=== PATIENT | female | born 1955 | race Caucasian/White ===

== ENCOUNTER 2024-10-11 19:34 | Inpatient (IN) | payer MEDICARE ==
[~2024-10-11] VITALS: Ht 165.1 cm; Wt 101.2 kg
[2024-10-11 20:00] VITALS: BP 131/80; TEMP 97.7; O2SAT 95
[2024-10-11] MEDS ORDERED: Z GUARD REMEDY 4 OZ OINT TP PRN (21:00)
[2024-10-11] MEDS ORDERED: ENOXAPARIN SODIUM 40 MG/0.4 ML DISP.SYRIN SQ SCH (21:00)
[2024-10-11] MEDS ORDERED: MAG HYDROX/AL HYDROX/SIMETH 30 ML UDC PO PRN (21:00)
[2024-10-11] MEDS ORDERED: MAGNESIUM HYDROXIDE 30 ML UDC PO PRN (21:00)
[2024-10-11] MEDS ORDERED: ONDANSETRON HCL/PF 4 MG/2 ML VIAL IVP PRN (21:00)
[2024-10-11] MEDS ORDERED: ZOLPIDEM TARTRATE 5 MG TABLET PO PRN (21:00)
[2024-10-11] MEDS: AMIODARONE 150 MG in IV D5W 100 ML IV ONE (22:10)
[2024-10-11] MEDS: AMIODARONE 450 MG in IV D5W 241 ML IV PRN (23:16)
[2024-10-12] VITALS: BP 106/84; TEMP 97.9; O2SAT 96
[2024-10-12] MEDS ORDERED: ALBUTEROL FS 2.5 MG/3 ML VIAL.NEB NEB PRN (01:00)
[2024-10-12] MEDS ORDERED: IPRATROPIUM NEB FS 0.5 MG/2.5 ML AMPUL.NEB NEB PRN (01:00)
[2024-10-12] MEDS: ASPIRIN 325 MG TABLET PO SCH (01:57)
[2024-10-12] MEDS: CEFTRIAXONE 1 G in IV D5W 50 ML IV SCH (02:26)
[2024-10-12] MEDS ORDERED: AZITHROMYCIN 500 MG VIAL ONE (02:36)
[2024-10-12] MEDS: AZITHROMYCIN 500 MG in IV D5W 250 ML IV SCH (03:11)
[2024-10-12 04:00] VITALS: BP 106/69; TEMP 98.4; O2SAT 95
[2024-10-12 07:13] LABS: BASOPHILS % (AUTO) 0.3 % (0.0-2.0); EOSINOPHILS % (AUTO) 0.4 % (0.0-6.0); HEMATOCRIT 44 % (33-45); HEMOGLOBIN 14.4 g/dL (11.5-14.8); LYMPHOCYTES # (AUTO) 1.6 K/uL (0.8-4.8); MEAN CORPUSCULAR HEMOGLOBIN 29 PG (26.0-33.0); MEAN CORPUSCULAR HGB CONC 33 g/dl (31.0-36.0); MEAN CORPUSCULAR VOLUME 88 fL (82-100); MONOCYTES # (AUTO) 0.7 K/uL (0.1-1.30); NEUTROPHILS # (AUTO) 5.3 K/uL (1.8-8.9); NEUTROPHILS % (AUTO) 69.3 % (43.0-81.0); PLATELET COUNT (AUTO) 259 K/uL (150-450); RED BLOOD CELL COUNT(AUTO) 5.02 MIL/uL (4.0-5.2); WHITE BLOOD COUNT (AUTO) 7.6 K/uL (4.3-11.0)
[2024-10-12 08:00] VITALS: BP 112/69; TEMP 98.2; O2SAT 95
[2024-10-12] MEDS: PANTOPRAZOLE 40 MG TABLET.DR PO SCH (08:24)
[2024-10-12 12:00] VITALS: BP 118/65; TEMP 98.7; O2SAT 95
[2024-10-12] MEDS: APIXABAN 5 MG TABLET PO SCH (14:11)
[2024-10-12 16:00] VITALS: BP_SYST 118; BP_SYST 127; BP_DIAS 65; BP_DIAS 68; TEMP 98.2; TEMP 98.4; O2SAT 95
[2024-10-12] MEDS: FUROSEMIDE 40 MG/4 ML VIAL IV SCH (16:22)
[2024-10-12] MEDS: DIGOXIN INJ 0.5 MG/2 ML AMPUL IV ONE ×2 (16:22→22:59)
[2024-10-12 16:33] LABS: CALCIUM, SERUM 9.2 mg/dL (8.5-10.1); CREATININE 1.3 mg/dL (0.6-1.3); MAGNESIUM 2.4 mg/dL (1.8-2.4); POTASSIUM 4.4 mmol/L (3.5-5.1)
[2024-10-12 16:59] LABS: THYROID STIMULATING HORMONE 1.96 uIU/mL (0.358-3.74)
[2024-10-12] MEDS ORDERED: METOPROLOL TARTRATE 25 MG TABLET PO SCH (18:00)
[2024-10-12 20:00] VITALS: BP 136/95; TEMP 98.4; O2SAT 97
[2024-10-12] MEDS: CEFTRIAXONE 2 G in IV D5W 100 ML IV SCH (22:59)
[2024-10-13] VITALS (25 sets, daily range): BP systolic 104–157; BP diastolic 54–124; TEMP 97.7–98.9; O2SAT 88–98
[2024-10-13] MEDS: DIGOXIN INJ 0.5 MG/2 ML AMPUL IV ONE (04:49)
[2024-10-13] MEDS ORDERED: ASPIRIN EC 81 MG TABLET.DR PO SCH (09:00)
[2024-10-13] MEDS ORDERED: IOHEXOL-350 100 ML VIAL IV ONE (15:45)
[2024-10-13] MEDS ORDERED: IV NS 0.9% 250 ML IV ONE (15:45)
[2024-10-13 16:29] LABS: BASOPHILS % (AUTO) 0.4 % (0.0-2.0); EOSINOPHILS # (AUTO) 0.1 K/uL (0.0-0.7); EOSINOPHILS % (AUTO) 0.8 % (0.0-6.0); HEMATOCRIT 44 % (33-45); HEMOGLOBIN 14.4 g/dL (11.5-14.8); LYMPHOCYTES # (AUTO) 1.2 K/uL (0.8-4.8); LYMPHOCYTES % (AUTO) 16.3 % (20.0-44.0); MEAN CORPUSCULAR HEMOGLOBIN 29 PG (26.0-33.0); MEAN CORPUSCULAR HGB CONC 32 g/dl (31.0-36.0); MEAN CORPUSCULAR VOLUME 89 fL (82-100); MONOCYTES # (AUTO) 0.7 K/uL (0.1-1.30); MONOCYTES % (AUTO) 10.2 % (2.0-12.0); NEUTROPHILS # (AUTO) 5.2 K/uL (1.8-8.9); NEUTROPHILS % (AUTO) 72.3 % (43.0-81.0); PLATELET COUNT (AUTO) 216 K/uL (150-450); RED CELL DISTRIBUTION WIDTH 16.3 % (11.5-15.0); WHITE BLOOD COUNT (AUTO) 7.2 K/uL (4.3-11.0)
[2024-10-13 16:34] LABS: INR 1.3 (0.91-1.10); PARTIAL THROMBOPLASTIN TIME 25.9 SEC (24.3-34.3); PROTHROMBIN TIME 13.5 SECS (9.2-11.1)
[2024-10-13 16:35] LABS: CALCIUM, SERUM 8.5 mg/dL (8.5-10.1); CREATININE 1.3 mg/dL (0.6-1.3); POTASSIUM 3.9 mmol/L (3.5-5.1)
[2024-10-13] MEDS: ASPIRIN 81 MG TAB.CHEW PO SCH (17:26)
[2024-10-13] MEDS: ATORVASTATIN 40 MG TABLET PO SCH (22:57)
[2024-10-14] VITALS (36 sets, daily range): BP systolic 97–173; BP diastolic 57–157; TEMP 98–99.3; O2SAT 88–98
[2024-10-14 05:09] LABS: BASOPHILS % (AUTO) 0.6 % (0.0-2.0); EOSINOPHILS % (AUTO) 0.8 % (0.0-6.0); HEMATOCRIT 45 % (33-45); HEMOGLOBIN 14.9 g/dL (11.5-14.8); LYMPHOCYTES # (AUTO) 1.1 K/uL (0.8-4.8); MEAN CORPUSCULAR HEMOGLOBIN 29 PG (26.0-33.0); MEAN CORPUSCULAR HGB CONC 33 g/dl (31.0-36.0); MEAN CORPUSCULAR VOLUME 88 fL (82-100); MONOCYTES # (AUTO) 0.6 K/uL (0.1-1.30); NEUTROPHILS # (AUTO) 4.1 K/uL (1.8-8.9); NEUTROPHILS % (AUTO) 69.6 % (43.0-81.0); PLATELET COUNT (AUTO) 216 K/uL (150-450); RED BLOOD CELL COUNT(AUTO) 5.14 MIL/uL (4.0-5.2); RED CELL DISTRIBUTION WIDTH 16.2 % (11.5-15.0); WHITE BLOOD COUNT (AUTO) 5.8 K/uL (4.3-11.0)
[2024-10-14 05:22] LABS: ALBUMIN 3.1 g/dL (3.4-5.0); MAGNESIUM 2.2 mg/dL (1.8-2.4); PHOSPHORUS 2.7 mg/dL (2.5-4.9); POTASSIUM 3.2 mmol/L (3.5-5.1); TOTAL PROTEIN, SERUM 6.8 g/dL (6.4-8.2)
[2024-10-14] MEDS: AMIODARONE 150 MG/3 ML VIAL IV ONE (07:39)
[2024-10-14] MEDS: CEFTRIAXONE 1GM BAG (ER ONLY) 50 ML IV ONE (07:39)
[2024-10-14] MEDS: METOPROLOL TARTRATE 50 MG TABLET PO SCH (09:21)
[2024-10-14] MEDS: FUROSEMIDE 40 MG/4 ML VIAL IV SCH (09:21)
[2024-10-14] MEDS: POTASSIUM CL. PREMIX PERIPHER. 50 ML IV SCH (09:23)
[2024-10-14] MEDS: DIGOXIN 0.25 MG TABLET PO SCH (14:04)
[2024-10-15] VITALS: BP 102/57; TEMP 99; O2SAT 95
[2024-10-15 04:00] VITALS: BP 114/62; TEMP 98.6; TEMP 99; O2SAT 95; O2SAT 98
[2024-10-15 05:55] LABS: BASOPHILS % (AUTO) 0.6 % (0.0-2.0); EOSINOPHILS # (AUTO) 0.1 K/uL (0.0-0.7); EOSINOPHILS % (AUTO) 1.5 % (0.0-6.0); HEMATOCRIT 47 % (33-45); HEMOGLOBIN 15.6 g/dL (11.5-14.8); LYMPHOCYTES # (AUTO) 1.9 K/uL (0.8-4.8); LYMPHOCYTES % (AUTO) 24.5 % (20.0-44.0); MEAN CORPUSCULAR HEMOGLOBIN 29 PG (26.0-33.0); MEAN CORPUSCULAR HGB CONC 33 g/dl (31.0-36.0); MEAN CORPUSCULAR VOLUME 88 fL (82-100); MONOCYTES # (AUTO) 0.9 K/uL (0.1-1.30); MONOCYTES % (AUTO) 11.3 % (2.0-12.0); NEUTROPHILS # (AUTO) 4.9 K/uL (1.8-8.9); NEUTROPHILS % (AUTO) 62.1 % (43.0-81.0); PLATELET COUNT (AUTO) 221 K/uL (150-450); RED BLOOD CELL COUNT(AUTO) 5.38 MIL/uL (4.0-5.2); WHITE BLOOD COUNT (AUTO) 7.8 K/uL (4.3-11.0)
[2024-10-15 06:54] LABS: ALBUMIN 2.8 g/dL (3.4-5.0); BILIRUBIN,TOTAL 0.8 mg/dL (0.2-1.0); CALCIUM, SERUM 9.1 mg/dL (8.5-10.1); CREATININE 1.2 mg/dL (0.6-1.3); MAGNESIUM 2.4 mg/dL (1.8-2.4); PHOSPHORUS 2.8 mg/dL (2.5-4.9); POTASSIUM 3.5 mmol/L (3.5-5.1); TOTAL PROTEIN, SERUM 6.8 g/dL (6.4-8.2)
[2024-10-15 08:00] VITALS: BP 134/91; TEMP 97.7; O2SAT 98
[2024-10-15] MEDS: POTASSIUM CHLORIDE 20 MEQ POWDER PACKET GT ONE (11:32)
[2024-10-15] MEDS: SPIRONOLACTONE 25 MG TABLET PO SCH (11:33)
[2024-10-15 12:00] VITALS: BP 101/82; TEMP 98.1; O2SAT 98
[2024-10-15 16:00] VITALS: BP 105/74; O2SAT 94
[2024-10-15] MEDS: METOPROLOL SUCCINATE 50 MG TAB.SR.24H PO SCH (17:27)
[2024-10-15] MEDS: GUAIFENESIN/CODEINE 10 ML UDC PO PRN (18:50)
[2024-10-15 20:00] VITALS: BP 118/96; TEMP 98.2; O2SAT 96
[2024-10-16 00:28] VITALS: BP 109/61; TEMP 98; O2SAT 96
[2024-10-16 06:52] LABS: ALBUMIN 2.9 g/dL (3.4-5.0); BILIRUBIN,TOTAL 0.8 mg/dL (0.2-1.0); CALCIUM, SERUM 9.5 mg/dL (8.5-10.1); CREATININE 1.1 mg/dL (0.6-1.3); MAGNESIUM 2.4 mg/dL (1.8-2.4); PHOSPHORUS 3.3 mg/dL (2.5-4.9); POTASSIUM 4.3 mmol/L (3.5-5.1); TOTAL PROTEIN, SERUM 6.8 g/dL (6.4-8.2)
[2024-10-16 06:53] LABS: EOSINOPHILS # (AUTO) 0.2 K/uL (0.0-0.7); LYMPHOCYTES # (AUTO) 1.9 K/uL (0.8-4.8); MONOCYTES # (AUTO) 0.6 K/uL (0.1-1.30); WHITE BLOOD COUNT (AUTO) 5.9 K/uL (4.3-11.0)
[2024-10-16 06:56] LABS: BASOPHILS % (AUTO) 0.4 % (0.0-2.0); EOSINOPHILS % (AUTO) 2.6 % (0.0-6.0); HEMATOCRIT 48 % (33-45); HEMOGLOBIN 15.2 g/dL (11.5-14.8); LYMPHOCYTES % (AUTO) 32.8 % (20.0-44.0); MEAN CORPUSCULAR HEMOGLOBIN 28 PG (26.0-33.0); MEAN CORPUSCULAR HGB CONC 32 g/dl (31.0-36.0); MEAN CORPUSCULAR VOLUME 88 fL (82-100); MONOCYTES % (AUTO) 10.3 % (2.0-12.0); NEUTROPHILS # (AUTO) 3.2 K/uL (1.8-8.9); NEUTROPHILS % (AUTO) 53.9 % (43.0-81.0); PLATELET COUNT (AUTO) 205 K/uL (150-450); RED BLOOD CELL COUNT(AUTO) 5.45 MIL/uL (4.0-5.2)
[2024-10-16] MEDS: FUROSEMIDE 20 MG TABLET PO SCH (08:45)
[2024-10-16 20:00] VITALS: BP 106/71; TEMP 98.1; O2SAT 97
[2024-10-17] VITALS: BP 119/71; TEMP 97.9; O2SAT 97
[2024-10-17] MEDS: LOPERAMIDE HCL (2 MG CAP) 2 MG CAPSULE PO PRN
[2024-10-17 04:00] VITALS: BP 118/62; TEMP 97.9; O2SAT 97; O2SAT 99
[2024-10-17] MEDS: ACETAMINOPHEN 325 MG TABLET PO PRN (04:39)
[2024-10-17 08:00] VITALS: BP 114/75; TEMP 97.9; O2SAT 93
[2024-10-17 11:58] VITALS: BP 129/92; TEMP 98.1; O2SAT 96
[2024-10-17] MEDS ORDERED: FURO20TA4 PO (14:09)
[2024-10-17] MEDS ORDERED: Digoxin PO ×2 (14:09→14:10)
[2024-10-17] MEDS ORDERED: METO50TA7 PO (14:09)
[2024-10-17] MEDS ORDERED: APIX5TAB PO (14:09)
[2024-10-17] MEDS ORDERED: ASPI-1169 PO (14:09)
[2024-10-17] MEDS ORDERED: SPIR25TA6 PO (14:09)
[2024-10-17] MEDS ORDERED: ATOR40TA PO (14:09)
[2024-10-17 17:51] VITALS: BP 118/72
== END 2024-10-17 17:56 | disposition home or self-care (01) | DRG 280 ==
LOC: TELE1 19:34 → TELE-TD 21:30 → ICU 10-13 18:39 → TELE 10-14 19:19
PROVIDERS: ADMIT Student in an Organized Health Care Education/Training Program
DX: I48.0 Paroxysmal atrial fibrillation (principal); I50.23 Acute on chronic systolic (congestive) heart failure; I21.A1 Myocardial infarction type 2; I63.9 Cerebral infarction, unspecified; D68.59 Other primary thrombophilia; G81.91 Hemiplegia, unspecified affecting right dominant side; I11.0 Hypertensive heart disease with heart failure; B34.9 Viral infection, unspecified; I48.91 Unspecified atrial fibrillation; I42.9 Cardiomyopathy, unspecified; Z87.891 Personal history of nicotine dependence; Z86.79 Personal history of other diseases of the circulatory system; Z91.199 Patient's noncompliance with other medical treatment and regimen due to unspecified reason; R47.1 Dysarthria and anarthria; R29.706 NIHSS score 6
CPT/HCPCS: 36415; 70450-TC; 70496-TC; 70498-TC; 71045-TC; 80048-TC; 80053-TC; 80061-TC; 82962-TC; 83735-TC; 84100-TC; 84443-TC; 84484-TC; 85025-TC; 85610-TC; 85730-TC; 87081-TC; 92526; 92611-TC; 93307-TC; 97110-TC; 97116-TC; 97530-TC; 97535-TC; A4223; G0378; J0282; J0456; J0696; J1160; J1940; J3480; J7030; J7050; J7060; Q9967